=== PATIENT | male | born 1970 | race Caucasian/White ===

== ENCOUNTER → 2017-05-30 | Outpatient (CLI) | payer BC ==
--- NOTE | 2017-05-30 11:09 | DIAGNOSTIC IMAGING REPORT ---
NUCLEAR MEDICINE VENTILATION/PERFUSION SCAN CLINICAL HISTORY: Atypical left-sided chest pain COMPARISON STUDY: No previous studies for comparison. FINDINGS: The patient was ventilated utilizing 32.9 mCi of technetium 99m DTPA aerosol. The patient was perfused utilizing 5.5 mCi of technetium 99m MAA. Immediate multi projectional imaging was performed. On the anterior images, there is a small matched defect at the left lung base. This finding is not confirmed on other projections. No VQ mismatches are visualized. This examination is of low probability for pulmonary embolism. IMPRESSION: Low probability for pulmonary embolism. Electronically signed by: Clovis Mayfield M.D. 05/30/2017 11:07 AM Dictated Date/Time: 05/30/2017 11:04 AM
--- NOTE | 2017-05-30 11:56 | DIAGNOSTIC IMAGING REPORT ---
CHEST 2 VIEWS ROUTINE CLINICAL HISTORY: Shortness of breath COMPARISON STUDY: No previous studies for comparison. FINDINGS: The cardiac and mediastinal contours are normal. There is no focal pulmonary consolidation. There is no failure. There are no pleural effusions. There is a 6 mm right midlung zone nodule. This is rather dense despite its small size and statistically postinflammatory.[ IMPRESSION: 6 mm right midlung zone nodule, statistically postinflammatory. No evidence of acute parenchymal consolidation. No evidence of failure. Electronically signed by: Clovis Mayfield M.D. 05/30/2017 11:55 AM Dictated Date/Time: 05/30/2017 11:54 AM
== END | disposition home or self-care (01) ==
LOC: C.NUCL 10:08
PROVIDERS: ATTEND Internal Medicine Cardiovascular Disease
DX: R07.9 Chest pain, unspecified (principal); R06.02 Shortness of breath; R91.1 Solitary pulmonary nodule